=== PATIENT | female | born 1970 | race Caucasian/White ===

== ENCOUNTER 2018-01-09 15:24 | Observation (INO) | payer MEDICAID ==
[2018-01-09 15:35] VITALS: BMI 32.8
--- NOTE | 2018-01-09 15:59 | ED PDOC ---
Arrival/HPI - General Chief Complaint: Chest Pain Time Seen by Provider: 01/09/18 15:39 Historian: Patient - History of Present Illness Narrative History of Present Illness (Text): 01/09/18 15:55 47 year old female presents to the Emergency department complaining of right sided chest pain with radiation to left sided neck for 2 weeks. Patient states she has been evaluated at [facility] twice for this complaint and was discharged home. This morning, the pain worsened so she decided to seek Emergency department evaluation. Pain is worse with deep breaths and certain movements. Patient also complains of secondary shortness of breath. Patient reports she had never experienced these symptoms before two weeks ago. Patient denies any fever, chills, diaphoresis, rhinorrhea, nausea, vomiting, diarrhea, urinary symptoms, back pain, headache, dizziness, trauma, or any other complaints. Time/Duration: < month (2 weeks) Symptom Onset: Gradual Symptom Course: Unchanged Context: Home Past Medical History - Provider Review Nursing Documentation Reviewed: Yes - Infectious Disease Hx of Infectious Diseases: None - Cardiac Hx Cardiac Disorders: No - Pulmonary Hx Respiratory Disorders: Yes Hx Asthma: Yes - Neurological Hx Neurological Disorder: No - HEENT Hx HEENT Disorder: No - Renal Hx Renal Disorder: No - Endocrine/Metabolic Hx Endocrine Disorders: No - Hematological/Oncological Hx Blood Disorders: No Hx AIDS: No - Integumentary Hx Dermatological Disorder: No - Musculoskeletal/Rheumatological Hx Musculoskeletal Disorders: No - Gastrointestinal Hx Gastrointestinal Disorders: No - Genitourinary/Gynecological Hx Genitourinary Disorders: No - Psychiatric Hx Psychophysiologic Disorder: No Hx Substance Use: No - Surgical History Hx Section: Yes - Anesthesia Hx Anesthesia Reactions: No Hx Malignant Hyperthermia: No Family/Social History - Physician Review Nursing Documentation Reviewed: Yes Family/Social History: Unknown Family HX Smoking Status: Never Smoked Hx Alcohol Use: No Hx Substance Use: No Allergies/Home Meds Allergies/Adverse Reactions: Allergies Penicillins Allergy (Verified 01/10/16 18:00) ANAPHYLAXIS Review of Systems - Physician Review All systems were reviewed & negative as marked: Yes - Review of Systems Constitutional: absent: Fevers, Night Sweats ENT: absent: Rhinorrhea Respiratory: SOB Cardiovascular: Chest Pain Gastrointestinal: absent: Diarrhea, Nausea, Vomiting Genitourinary Female: absent: Dysuria, Frequency, Hematuria Musculoskeletal: Neck Pain. absent: Back Pain Neurological: absent: Headache, Dizziness Endocrine: absent: Diaphoresis Physical Exam Vital Signs Reviewed: Yes Vital Signs Temp Pulse Resp BP Pulse Ox 01/09/18 19:18 89 18 141/77 99 01/09/18 16:36 78 20 155/93 H 96 01/09/18 15:38 98.0 F 95 H 18 130/82 100 Temperature: Afebrile Blood Pressure: Normal Pulse: Tachycardic Respiratory Rate: Normal Appearance: Positive for: Well-Appearing, Non-Toxic, Comfortable Pain Distress: None Mental Status: Positive for: Alert and Oriented X 3, other (patient is crying) - Systems Exam Head: Present: Atraumatic, Normocephalic Pupils: Present: PERRL Extroacular Muscles: Present: EOMI Conjunctiva: Present: Normal Mouth: Present: Moist Mucous Membranes Neck: Present: Normal Range of Motion Respiratory/Chest: Present: Decreased Breath Sounds, Tender to Palpation ( tenderness to palpation over anterior chest wall) Cardiovascular: Present: Regular Rate and Rhythm, Normal S1, S2. No: Murmurs Abdomen: Present: Normal Bowel Sounds. No: Tenderness, Distention, Peritoneal Signs Back: Present: Normal Inspection Upper Extremity: Present: Normal Inspection. No: Cyanosis, Edema Lower Extremity: Present: Normal Inspection. No: Edema Neurological: Present: GCS=15, CN II-XII Intact, Speech Normal Skin: Present: Warm, Dry, Normal Color. No: Rashes Psychiatric: Present: Alert, Oriented x 3, Normal Insight, Normal Concentration Medical Decision Making ED Course and Treatment: 01/09/18 16:03 Impression: 47 year old female presents to the Emergency department complaining of right sided chest pain that radiates to the left neck. Plan: -- EKG -- Urinalysis, HCG qualitative urine -- Labs -- Aspirin, Toradol -- Reassess and disposition Progress Notes: 01/09/18 16:47 EKG shows normal sinus rhythm rate approximately [address] or T-wave changes. There are Q waves inferiorly with poor R-wave progression. No old available for comparison. 01/09/18 16:48 No improvement with nitroglycerin or Toradol. Pain is improved with morphine. - Lab Interpretations Lab Results: 01/09/18 16:10 01/09/18 16:10 Lab Results 01/09/18 16:10: Phosphorus 3.3 01/09/18 16:10: D-Dimer, Quantitative 209 01/09/18 16:10: Sodium 143, Potassium 3.9, Chloride 105, Carbon Dioxide 26, Anion Gap 16, BUN 13, Creatinine 0.6 L, Est GFR ( Amer) > 60, Est GFR ( Non-Af Amer) > 60, Random Glucose 99, Calcium 10.2, Magnesium 2.1, Total Bilirubin 0.5, AST 34, ALT 44, Alkaline Phosphatase 74, Lactate Dehydrogenase 568, Total Creatine Kinase 73, Troponin I < 0.01, Total Protein 7.4, Albumin 4.2 , Globulin 3.2, Albumin/Globulin Ratio 1.3 01/09/18 16:10: WBC 10.7, RBC 4.98, Hgb 14.8, Hct 43.9, MCV 88.2, MCH 29.7, MCHC 33.7, RDW 12.9, Plt Count 262, MPV 10.0, Gran % 64.7, Lymph % (Auto) 27.0, [place] % (Auto) 7.5 H, Eos % (Auto) 0.4 L, Baso % (Auto) 0.4, Gran # 6.95 H, Lymph # (Auto) 2.9, [place] # (Auto) 0.8 H, Eos # (Auto) 0.0, Baso # (Auto) 0.04 - Medication Orders Current Medication Orders: Aspirin (Aspirin Chewable) 81 mg PO DAILY [facility] Cyclobenzaprine HCl (Flexeril) 5 mg PO Q8H PRN PRN Reason: Pain, moderate (4-7) Heparin Sodium (Porcine) (Heparin) 5,000 units SC Q12 [facility] PRN Reason: Protocol Ibuprofen (Motrin Tab) 400 mg PO Q6H PRN PRN Reason: Pain, Mild (1-3) Pantoprazole Sodium (Protonix Ec Tab) 40 mg PO DAILY [facility] Discontinued Medications Aspirin (Aspirin) 325 mg PO STAT STA Stop: 01/09/18 15:48 Last Admin: 01/09/18 16:15 Dose: Ketorolac Tromethamine (Toradol) 15 mg IVP ONCE ONE Stop: 01/09/18 15:50 Last Admin: 01/09/18 16:15 Dose: 15 mg MAR Pain Assessment Document 01/09/18 16:15 SRE (Rec: 01/09/18 16:25 SRE [id number]) Pain Reassessment Is this a pain reassessment? Yes Sleep Is patient sleeping during reassessment? No IVP Administration Document 01/09/18 16:15 SRE (Rec: 01/09/18 16:25 SRE [id number]) Charges for Administration # of IVP Administrations 1 Morphine Sulfate (Morphine) 4 mg IVP STAT STA Stop: 01/09/18 16:31 Last Admin: 01/09/18 16:49 Dose: 4 mg MAR Pain Assessment Document 01/09/18 16:49 SRE (Rec: 01/09/18 16:50 SRE [id number]) Pain Reassessment Is this a pain reassessment? Yes Sleep Is patient sleeping during reassessment? No Presence of Pain Presence of Pain Yes Pain Scale Used Pain Scale Used Numeric Location Pain Location Body Site Chest Description Description Constant IVP Administration Document 01/09/18 16:49 SRE (Rec: 01/09/18 16:50 SRE [id number]) Charges for Administration # of IVP Administrations 1 Nitroglycerin (Nitrostat Sl Tab) 0.4 mg SL STAT STA Stop: 01/09/18 16:31 Last Admin: 01/09/18 16:30 Dose: 0.4 mg Ondansetron HCl (Zofran Inj) 4 mg IVP ONCE ONE Stop: 01/09/18 16:31 Last Admin: 01/09/18 16:46 Dose: 4 mg IVP Administration Document 01/09/18 16:46 SRE (Rec: 01/09/18 16:49 SRE [id number]) Charges for Administration # of IVP Administrations 1 Pantoprazole Sodium (Protonix Ec Tab) 40 mg PO ONCE ONE Stop: 01/09/18 18:21 Last Admin: 01/09/18 19:07 Dose: 40 mg - Scribe Statement The provider has reviewed the documentation as recorded by the Devon Vanegas Provider Scribe Attestation: All medical record entries made by the Sumitibиван were at my direction and personally dictated by me. I have reviewed the chart and agree that the record accurately reflects my personal performance of the history, physical exam, medical decision making, and the department course for this patient. I have also personally directed, reviewed, and agree with the discharge instructions and disposition. Disposition/Present on Arrival - Present on Arrival Any Indicators Present on Arrival: No History of DVT/PE: No History of Uncontrolled Diabetes: No Urinary Catheter: No History of Decub. Ulcer: No History Surgical Site Infection Following: None - Disposition Have Diagnosis and Disposition been Completed?: Yes Diagnosis: Chest pain Disposition: HOSPITALIZED Disposition Time: 17:02 Patient Plan: Observation, Telemetry Patient Problems: Current Active Problems Problem Status Onset Chest pain Acute Condition: GOOD
[2018-01-09 16:29] LABS: BASO # 0.04 K/mm3 (0.0-2.0); BASO % 0.4 % (0.0-3.0); EOS % 0.4 % (1.5-5.0); GRAN # 6.95 (1.4-6.5); GRAN % 64.7 % (50.0-68.0); HEMOGLOBIN 14.8 g/dL (12.0-16.0); LYMPH # 2.9 (1.2-3.4); MEAN CELL VOLUME 88.2 fl (80.0-105.0); MEAN CORPUSCULAR HEMOGLOBIN 29.7 pg (25.0-35.0); MEAN CORPUSCULAR HGB CONC 33.7 g/dl (31.0-37.0); MONO # 0.8 (0.1-0.6); MONO % 7.5 % (1.0-6.0); RBC 4.98 10^6/uL (3.5-6.1); RED CELL DISTRIBUTION WIDTH 12.9 % (11.5-14.5); WHITE BLOOD COUNT 10.7 10^3/ul (4.5-11.0)
[2018-01-09] MEDS ORDERED: Morphine 4 mg/ml ISec IVP STA (16:30)
[2018-01-09 16:32] LABS: ALB/GLOB RATIO 1.3 (1.1-1.8); ALBUMIN 4.2 g/dL (3.0-4.8); ALT/SGPT 44 U/L (7-56); AST/SGOT 34 U/L (14-36); BLOOD UREA NITROGEN 13 mg/dL (7-21); CALCIUM 10.2 mg/dL (8.4-10.5); GFR AFRICAN-AMERICAN > 60; GFR NON-AFRICAN AMERICAN > 60
[2018-01-09 16:44] LABS: TROPONIN I < 0.01 ng/mL
--- NOTE | 2018-01-09 17:14 | CP.PCM.HP ---
<Princess Juan - Last Filed: 01/09/18 18:23> History of Present Illness - History of Present Illness History of Present Illness: CC: chest pain HPI: 47F with no PMHx presents to ED with complaints of intermittent chest pain for 2 weeks. Patient reports pain began with no inciting event. She rates the pain 10/10 at its worst and describes it as a "knock." Patient's pain is located in her epigastric region and radiates to her left shoulder, back, neck, and down her left arm to her fingers. She reports movement and palpation of the areas make the pain worse and the medications she took in the ED (toradol and morphine) made the pain better. She also admitted to a headache which subsided upon receiving medications in the ED. Patient also reports an association with food stating that every time she eats she feels worsening epigastric pain. On complete ROS patient denied fever, chills, weight loss, SOB, cough, abd pain, nausea, vomiting, bowel/bladder complaints, swelling in her legs b/l. Patient admits to headache, dizziness, chest pain, palpitations, LLE pain. Of note patient was seen twice at [facility] for similar complaints and was discharged home. PMHx: None PSurgHx: cholecystectomy 10years ago; C-sections Meds: None ALL: PCN SocHx: denies EtOH, tobacco use, drug use in family. Lives at home with . Works as a cashier wrapper. Denies any recent travel/sick contacts. FamHx: hx of DM in the family [patient unable to specify who]; denied hx of CVA , [place], cancer in family PMD: None Present on Admission - Present on Admission Any Indicators Present on Admission: No Review of Systems - Review of Systems All systems: reviewed and no additional remarkable complaints except - Constitutional Constitutional: As Per HPI, Headache. absent: Chills, Fever, Weight Loss - EENT Eyes: As Per HPI. absent: Change in Vision Ears: As Per HPI, Dizziness Nose/Mouth/Throat: As Per HPI. absent: Sore Throat - Cardiovascular Cardiovascular: As Per HPI, Chest Pain, Pain Radiating to Arm/Neck/Jaw, Palpitations. absent: Dyspnea, Dyspnea on Exertion, Edema, Leg Edema, Syncope - Respiratory Respiratory: As Per HPI. absent: Cough, Dyspnea, Dyspnea on Exertion - Gastrointestinal Gastrointestinal: As Per HPI, Heartburn. absent: Abdominal Pain, Constipation, Diarrhea, Dysphagia, Nausea, Vomiting - Genitourinary Genitourinary: As Per HPI. absent: Dysuria, Hematuria, Pyuria - Musculoskeletal Musculoskeletal: As Per HPI, Back Pain, Myalgias, Neck Pain, Radiating Pain into Limb. absent: Numbness, Stiffness, Tingling - Integumentary Integumentary: As Per HPI. absent: Dry Skin, Rash - Neurological Neurological: As Per HPI, Dizziness, Headaches. absent: Numbness, Tingling - Psychiatric Psychiatric: As Per HPI. absent: Anxiety, Depression - Endocrine Endocrine: As Per HPI. absent: Polydipsia, Polyphagia, Polyuria - Hematologic/Lymphatic Hematologic: As Per HPI. absent: Easy Bleeding, Easy Bruising, Lymphadenopathy Past Patient History - Infectious Disease Hx of Infectious Diseases: None - Past Social History Smoking Status: Never Smoked - CARDIAC Hx Cardiac Disorders: No - PULMONARY Hx Respiratory Disorders: Yes Hx Asthma: Yes - NEUROLOGICAL Hx Neurological Disorder: No - HEENT Hx HEENT Problems: No - RENAL Hx Chronic Kidney Disease: No - ENDOCRINE/METABOLIC Hx Endocrine Disorders: No - HEMATOLOGICAL/ONCOLOGICAL Hx Blood Disorders: No Hx AIDS: No - INTEGUMENTARY Hx Dermatological Problems: No - MUSCULOSKELETAL/RHEUMATOLOGICAL Hx Musculoskeletal Disorders: No - GASTROINTESTINAL Hx Gastrointestinal Disorders: No - GENITOURINARY/GYNECOLOGICAL Hx Genitourinary Disorders: No - PSYCHIATRIC Hx Psychophysiologic Disorder: No Hx Substance Use: No - SURGICAL HISTORY Hx Section: Yes - ANESTHESIA Hx Anesthesia Reactions: No Hx Malignant Hyperthermia: No Meds Allergies/Adverse Reactions: Allergies Allergy/AdvReac Type Severity Reaction Status Date / Time Penicillins Allergy ANAPHYLAXIS Verified 01/10/16 18:00 Physical Exam - Constitutional Appears: Non-toxic, No Acute Distress - Head Exam Head Exam: ATRAUMATIC, NORMAL INSPECTION, NORMOCEPHALIC - Eye Exam Eye Exam: EOMI, Normal appearance, PERRL. absent: Conjunctival injection, Scleral icterus Pupil Exam: NORMAL ACCOMODATION - ENT Exam ENT Exam: Mucous Membranes Moist - Neck Exam Neck exam: Positive for: Normal Inspection. Negative for: Tenderness - Respiratory Exam Respiratory Exam: Clear to Auscultation Bilateral, NORMAL BREATHING PATTERN. absent: Accessory Muscle Use, Rales, Rhonchi, Wheezes, Respiratory Distress - Cardiovascular Exam Cardiovascular Exam: REGULAR RHYTHM, RRR, +S1, +S2. absent: Systolic Murmur - GI/Abdominal Exam GI & Abdominal Exam: Normal Bowel Sounds, Soft. absent: Firm, Guarding, Rigid, Tenderness - Rectal Exam Rectal Exam: Deferred - Extremities Exam Extremities exam: Positive for: normal capillary refill, normal inspection, pedal pulses present. Negative for: pedal edema - Back Exam Back exam: muscle spasm, NORMAL INSPECTION, paraspinal tenderness. absent: rash noted - Neurological Exam Neurological exam: Alert, CN II-XII Intact, Oriented x3 - Psychiatric Exam Psychiatric exam: Normal Affect, Normal Mood - Skin Skin Exam: Dry, Intact, Normal Color, Warm Results - Vital Signs Recent Vital Signs: Last Vital Signs Temp 98.0 F 01/09/18 15:38 Pulse 78 01/09/18 16:36 Resp 20 01/09/18 16:36 BP 155/93 H 01/09/18 16:36 Pulse Ox 96 01/09/18 16:36 - Labs Result Diagrams: 01/09/18 16:10 01/09/18 16:10 Labs: Laboratory Results - last 24 hr 01/09/18 01/09/18 01/09/18 16:10 16:10 16:10 WBC 10.7 RBC 4.98 Hgb 14.8 Hct 43.9 MCV 88.2 MCH 29.7 MCHC 33.7 RDW 12.9 Plt Count 262 MPV 10.0 Gran % 64.7 Lymph % (Auto) 27.0 Elbert % (Auto) 7.5 H Eos % (Auto) 0.4 L Baso % (Auto) 0.4 Gran # 6.95 H Lymph # (Auto) 2.9 [place]bert # (Auto) 0.8 H Eos # (Auto) 0.0 Baso # (Auto) 0.04 D-Dimer, Quantitative 209 Sodium 143 Potassium 3.9 Chloride 105 Carbon Dioxide 26 Anion Gap 16 BUN 13 Creatinine 0.6 L Est GFR ( Amer) > 60 Est GFR (Non-Af Amer) > 60 Random Glucose 99 Calcium 10.2 Magnesium 2.1 Total Bilirubin 0.5 AST 34 ALT 44 Alkaline Phosphatase 74 Lactate Dehydrogenase 568 Total Creatine Kinase 73 Troponin I < 0.01 Total Protein 7.4 Albumin 4.2 Globulin 3.2 Albumin/Globulin Ratio 1.3 Assessment & Plan - Assessment and Plan (Free Text) Assessment: 47F with no PMHx presents to ED with complaints of intermittent chest pain for 2 weeks Plan: Chest pain r/o ACS - Tele/Obs admission - Troponin neg x 1 f/u trop x 2 - EKG no acute findings noted - ASA 81mg qd - f/u Echo - f/u AM labs including CBC, CMP, Lipid panel, Thyroid studies, HgbA1c - Heart Healthy Diet - Cardio consult: Dr. Graciela KRUSE pain - low suspicion for DVT - f/u dopplers to r/o DVT Neck/Back pain - likely muscle spasms secondary to patient's work as a cashier wrapper - Flexeril 5mg po q8h prn pain mod - Motrin 400mg po q6h prn pain mild GI ppx: Protonix 40mg po qd DVT ppx: Heparin 5000u sc q12, SCDs Diet: HHD Discussed with Dr. Johnnie Juan PGY2 <Omi Blair - Last Filed: 01/10/18 12:12> Results - Vital Signs Recent Vital Signs: Last Vital Signs Temp 98 F 01/10/18 11:51 Pulse 72 01/10/18 11:51 Resp 20 01/10/18 11:51 BP 106/66 01/10/18 11:51 Pulse Ox 97 01/10/18 06:00 - Labs Result Diagrams: 01/10/18 04:15 01/10/18 04:15 Labs: Laboratory Results - last 24 hr 01/09/18 01/09/18 01/09/18 17:50 17:50 21:55 WBC RBC Hgb Hct MCV MCH MCHC RDW Plt Count MPV Gran % Lymph % (Auto) Elbert % (Auto) Eos % (Auto) Baso % (Auto) Gran # Lymph # (Auto) [place]bert # (Auto) Eos # (Auto) Baso # (Auto) APTT Sodium Potassium Chloride Carbon Dioxide Anion Gap BUN Creatinine Est GFR ( Amer) Est GFR (Non-Af Amer) Random Glucose Calcium Total Bilirubin AST ALT Alkaline Phosphatase Troponin I < 0.01 Total Protein Albumin Globulin Albumin/Globulin Ratio Triglycerides Cholesterol LDL Cholesterol Direct HDL Cholesterol Free T4 TSH 3rd Generation Urine Color Straw Urine Appearance Clear Urine pH 7.0 Ur Specific [place] 1.010 Urine Protein Negative Urine Glucose (UA) Negative Urine Ketones Negative Urine Blood Negative Urine Nitrate Negative Urine Bilirubin Negative Urine Urobilinogen 0.2 Ur Leukocyte Esterase Negative Urine HCG, Qual Negative 01/10/18 01/10/18 01/10/18 04:15 04:15 04:15 WBC 9.1 RBC 4.83 Hgb 14.3 Hct 43.2 MCV 89.4 MCH 29.6 MCHC 33.1 RDW 13.0 Plt Count 246 MPV 9.7 Gran % 64.9 Lymph % (Auto) 27.0 [place] % (Auto) 7.0 H Eos % (Auto) 0.7 L Baso % (Auto) 0.4 Gran # 5.91 Lymph # (Auto) 2.5 Elbert # (Auto) 0.6 Eos # (Auto) 0.1 Baso # (Auto) 0.04 APTT Sodium 142 Potassium 3.8 Chloride 105 Carbon Dioxide 31 Anion Gap 11 BUN 15 Creatinine 0.7 Est GFR ( Amer) > 60 Est GFR (Non-Af Amer) > 60 Random Glucose 114 H Calcium 10.2 Total Bilirubin 0.5 AST 36 ALT 49 Alkaline Phosphatase 75 Troponin I < 0.01 Total Protein 7.0 Albumin 3.8 Globulin 3.2 Albumin/Globulin Ratio 1.2 Triglycerides 147 Cholesterol 178 LDL Cholesterol Direct 114 HDL Cholesterol 40 Free T4 0.88 TSH 3rd Generation 1.68 Urine Color Urine Appearance Urine pH Ur Specific [place] Urine Protein Urine Glucose (UA) Urine Ketones Urine Blood Urine Nitrate Urine Bilirubin Urine Urobilinogen Ur Leukocyte Esterase Urine HCG, Qual 01/10/18 04:15 WBC RBC Hgb Hct MCV MCH MCHC RDW Plt Count MPV Gran % Lymph % (Auto) [place]bert % (Auto) Eos % (Auto) Baso % (Auto) Gran # Lymph # (Auto) [place] # (Auto) Eos # (Auto) Baso # (Auto) APTT 30.7 Sodium Potassium Chloride Carbon Dioxide Anion Gap BUN Creatinine Est GFR ( Amer) Est GFR (Non-Af Amer) Random Glucose Calcium Total Bilirubin AST ALT Alkaline Phosphatase Troponin I Total Protein Albumin Globulin Albumin/Globulin Ratio Triglycerides Cholesterol LDL Cholesterol Direct HDL Cholesterol Free T4 TSH 3rd Generation Urine Color Urine Appearance Urine pH Ur Specific [place] Urine Protein Urine Glucose (UA) Urine Ketones Urine Blood Urine Nitrate Urine Bilirubin Urine Urobilinogen Ur Leukocyte Esterase Urine HCG, Qual Attending/Attestation - Attestation I have personally seen and examined this patient.: Yes I have fully participated in the care of the patient.: Yes I have reviewed all pertinent clinical information: Yes Notes (Text): 01/10/18 12:10 attending note; Patient seen and examined with resident in ER. Patient is a 47-year-old female with no significant past medical history is admitted with left sided chest pain. Patient also complaining of left scapular area pain. Currently denies any headache or neck pain. EKG nonspecific changes. Cardiac enzyme 1 negative. admit the patient to telemetry. Cardiac enzymes 3 ordered. Cardiology evaluation requested. Most likely musculoskeletal pain. Vitals stable. Upon discharge the patient will follow-up with PMD of choice.
[2018-01-09 18:01] LABS: URINE BILIRUBIN NEGATIVE (NEGATIVE); URINE BLOOD NEGATIVE (NEGATIVE); URINE GLUCOSE (UA) NEGATIVE (NEGATIVE); URINE LEUKOCYTE ESTERASE NEGATIVE Leu/uL (NEGATIVE); URINE PROTEIN NEGATIVE mg/dL (<30 mg/dL); URINE UROBILINOGEN 0.2 E.U./dL (<1 E.U./dL)
[2018-01-09 18:02] LABS: URINE APPEARANCE CLEAR (CLEAR); URINE COLOR STRAW (YELLOW)
[2018-01-09] MEDS ORDERED: Pantoprazole 40 mg EC Tab PO ONE (18:20)
--- NOTE | 2018-01-09 21:10 | US ---
HISTORY: Leg pain and swelling. Evaluate for DVT PHYSICIAN(S): Ryan Gonsales MD. TECHNIQUE: Duplex sonography and color-flow Doppler with graded compression were used to evaluate the deep venous systems of both lower extremities. FINDINGS: The visualized deep venous systems of both lower extremities are sonographically normal and compressible. Normal wave forms and augmentation are seen. There is no sonographic evidence for deep venous thrombosis in the visualized segments of both lower extremities. IMPRESSION: No sonographic evidence for deep venous thrombosis in the visualized segments of both lower extremities.
[2018-01-10 04:40] LABS: BASO # 0.04 K/mm3 (0.0-2.0); BASO % 0.4 % (0.0-3.0); EOS # 0.1 (0.0-0.7); EOS % 0.7 % (1.5-5.0); GRAN # 5.91 (1.4-6.5); GRAN % 64.9 % (50.0-68.0); HEMOGLOBIN 14.3 g/dL (12.0-16.0); LYMPH # 2.5 (1.2-3.4); MEAN CELL VOLUME 89.4 fl (80.0-105.0); MEAN CORPUSCULAR HEMOGLOBIN 29.6 pg (25.0-35.0); MEAN CORPUSCULAR HGB CONC 33.1 g/dl (31.0-37.0); MEAN PLATELET VOLUME 9.7 fl (7.0-11.0); MONO # 0.6 (0.1-0.6); RBC 4.83 10^6/uL (3.5-6.1); WHITE BLOOD COUNT 9.1 10^3/ul (4.5-11.0)
[2018-01-10 04:47] LABS: ALB/GLOB RATIO 1.2 (1.1-1.8); ALBUMIN 3.8 g/dL (3.0-4.8); ALT/SGPT 49 U/L (7-56); AST/SGOT 36 U/L (14-36); BLOOD UREA NITROGEN 15 mg/dL (7-21); CALCIUM 10.2 mg/dL (8.4-10.5); GFR AFRICAN-AMERICAN > 60; GFR NON-AFRICAN AMERICAN > 60; HDL CHOLESTEROL 40 mg/dL (29-60)
[2018-01-10 04:58] LABS: LDL CHOLESTEROL 114 mg/dL (0-129)
[2018-01-10 04:59] LABS: TROPONIN I < 0.01 ng/mL
[2018-01-10 05:03] LABS: FREE T4 0.88 ng/dL (0.78-2.19)
[2018-01-10 06:10] VITALS: O2SAT 97
[2018-01-10] MEDS ORDERED: Alum-Mag Hydrox-Simethicone Susp (30 mL) PO ONE (08:46)
[2018-01-10] MEDS ORDERED: Pantoprazole 40 mg EC Tab PO SCH (10:00)
--- NOTE | 2018-01-10 10:57 | CARD ---
APPROVED REPORT EKG Measurement Heart [id number] MA [id number] <Conclusion> Normal sinus rhythm Possible inferior infarct, age undetermined Low voltage lateral leads
--- NOTE | 2018-01-10 11:44 | CARD ---
APPROVED REPORT EKG Measurement Heart [id number] [place] [id number] <Conclusion> Normal sinus rhythm Q in Lead 3, AVF can represent Old. Inf.Wall OR.
[2018-01-10] MEDS ORDERED: Alum-Mag Hydrox-Simethicone Susp (30 mL) PO PRN (12:09)
--- NOTE | 2018-01-10 12:11 | CT ---
PROCEDURE: CT HEAD WITHOUT CONTRAST. HISTORY: Headache with eye droop COMPARISON: None available. TECHNIQUE: Axial computed tomography images were obtained through the head/brain without intravenous contrast. Radiation dose: Total exam DLP = 944 mGy-cm. This CT exam was performed using one or more of the following dose reduction techniques: Automated exposure control, adjustment of the mA and/or kV according to patient size, and/or use of iterative reconstruction technique. FINDINGS: HEMORRHAGE: No intracranial hemorrhage. BRAIN: No mass effect or edema. No atrophy or chronic microvascular ischemic changes. VENTRICLES: Unremarkable. No hydrocephalus. CALVARIUM: Unremarkable. PARANASAL SINUSES: Unremarkable as visualized. No significant inflammatory changes. MASTOID AIR CELLS: Unremarkable as visualized. No inflammatory changes. OTHER FINDINGS: None. IMPRESSION: No acute findings
--- NOTE | 2018-01-10 12:19 | CT ---
PROCEDURE: CT Cervical Spine without contrast HISTORY: Neck pain COMPARISON: None available. TECHNIQUE: Axial computed tomography images were obtained of the cervical spine without the use of intravenous contrast. Coronal and sagittal reformatted images were created and reviewed. Radiation dose: Total exam DLP = 559 mGy-cm. This CT exam was performed using one or more of the following dose reduction techniques: Automated exposure control, adjustment of the mA and/or kV according to patient size, and/or use of iterative reconstruction technique. FINDINGS: VERTEBRAE: No fracture. Normal alignment. No destructive bony lesion. DISCS/SPINAL CANAL/NEURAL FORAMINA: No significant central canal or neural foraminal stenosis. Discs heights are grossly preserved. PARASPINAL SOFT TISSUES: Unremarkable. OTHER FINDINGS: None. IMPRESSION: Unremarkable CT of the cervical spine.
--- NOTE | 2018-01-10 13:27 | CP.PCM.DIS ---
<BrandtFernando - Last Filed: 01/11/18 06:49> Provider - Provider Date of Admission: 01/09/18 17:00 Attending physician: Omi Blair MD Consults: Cardio: Dr. Trinidad Time Spent in preparation of Discharge (in minutes): 45 Hospital Course - Lab Results Lab Results: Most Recent Lab Values WBC 9.1 10^3/ul (4.5-11.0) 01/10/18 04:15 RBC 4.83 10^6/uL (3.5-6.1) 01/10/18 04:15 Hgb 14.3 g/dL (12.0-16.0) 01/10/18 04:15 Hct 43.2 % (36.0-48.0) 01/10/18 04:15 MCV 89.4 fl (80.0-105.0) 01/10/18 04:15 MCH 29.6 pg (25.0-35.0) 01/10/18 04:15 MCHC 33.1 g/dl (31.0-37.0) 01/10/18 04:15 RDW 13.0 % (11.5-14.5) 01/10/18 04:15 Plt Count 246 10^3/uL (120.0-450.0) 01/10/18 04:15 MPV 9.7 fl (7.0-11.0) 01/10/18 04:15 Gran % 64.9 % (50.0-68.0) 01/10/18 04:15 Lymph % (Auto) 27.0 % (22.0-35.0) 01/10/18 04:15 Saunders % (Auto) 7.0 % (1.0-6.0) H 01/10/18 04:15 Eos % (Auto) 0.7 % (1.5-5.0) L 01/10/18 04:15 Baso % (Auto) 0.4 % (0.0-3.0) 01/10/18 04:15 Gran # 5.91 (1.4-6.5) 01/10/18 04:15 Lymph # (Auto) 2.5 (1.2-3.4) 01/10/18 04:15 Saunders # (Auto) 0.6 (0.1-0.6) 01/10/18 04:15 Eos # (Auto) 0.1 (0.0-0.7) 01/10/18 04:15 Baso # (Auto) 0.04 K/mm3 (0.0-2.0) 01/10/18 04:15 APTT 30.7 Seconds (25.1-36.5) 01/10/18 04:15 D-Dimer, Quantitative 209 ng/mL (0-243) 01/09/18 16:10 Sodium 142 mmol/L (132-148) 01/10/18 04:15 Potassium 3.8 mmol/L (3.6-5.0) 01/10/18 04:15 Chloride 105 mmol/L (98-107) 01/10/18 04:15 Carbon Dioxide 31 mmol/L (21-33) 01/10/18 04:15 Anion Gap 11 (10-20) 01/10/18 04:15 BUN 15 mg/dL (7-21) 01/10/18 04:15 Creatinine 0.7 mg/dl (0.7-1.2) 01/10/18 04:15 Est GFR ( Amer) > 60 01/10/18 04:15 Est GFR (Non-Af Amer) > 60 01/10/18 04:15 Random Glucose 114 mg/dL (70-110) H 01/10/18 04:15 Hemoglobin A1c 6.4 % (4.2-6.5) 01/10/18 04:15 Calcium 10.2 mg/dL (8.4-10.5) 01/10/18 04:15 Phosphorus 3.3 mg/dL (2.5-4.5) 01/09/18 16:10 Magnesium 2.1 mg/dL (1.7-2.2) 01/09/18 16:10 Total Bilirubin 0.5 mg/dL (0.2-1.3) 01/10/18 04:15 AST 36 U/L (14-36) 01/10/18 04:15 ALT 49 U/L (7-56) 01/10/18 04:15 Alkaline Phosphatase 75 U/L (38-126) 01/10/18 04:15 Lactate Dehydrogenase 568 U/L (333-699) 01/09/18 16:10 Total Creatine Kinase 73 U/L (35-230) 01/09/18 16:10 Troponin I < 0.01 ng/mL 01/10/18 04:15 Total Protein 7.0 g/dL (5.8-8.3) 01/10/18 04:15 Albumin 3.8 g/dL (3.0-4.8) 01/10/18 04:15 Globulin 3.2 gm/dL 01/10/18 04:15 Albumin/Globulin Ratio 1.2 (1.1-1.8) 01/10/18 04:15 Triglycerides 147 mg/dL (35-160) 01/10/18 04:15 Cholesterol 178 mg/dL (130-200) 01/10/18 04:15 LDL Cholesterol Direct 114 mg/dL (0-129) 01/10/18 04:15 HDL Cholesterol 40 mg/dL (29-60) 01/10/18 04:15 Free T4 0.88 ng/dL (0.78-2.19) 01/10/18 04:15 TSH 3rd Generation 1.68 mIU/mL (0.46-4.68) 01/10/18 04:15 Urine Color Straw (YELLOW) 01/09/18 17:50 Urine Appearance Clear (CLEAR) 01/09/18 17:50 Urine pH 7.0 (4.7-8.0) 01/09/18 17:50 Ur Specific [place] 1.010 (1.005-1.035) 01/09/18 17:50 Urine Protein Negative mg/dL (<30 mg/dL) 01/09/18 17:50 Urine Glucose (UA) Negative mg/dL (NEGATIVE) 01/09/18 17:50 Urine Ketones Negative mg/dL (NEGATIVE) 01/09/18 17:50 Urine Blood Negative (NEGATIVE) 01/09/18 17:50 Urine Nitrate Negative (NEGATIVE) 01/09/18 17:50 Urine Bilirubin Negative (NEGATIVE) 01/09/18 17:50 Urine Urobilinogen 0.2 E.U./dL (<1 E.U./dL) 01/09/18 17:50 Ur Leukocyte Esterase Negative Jaylen/uL (NEGATIVE) 01/09/18 17:50 Urine HCG, Qual Negative (NEGATIVE) 03/18/18 17:50 - Hospital Course Hospital Course: HPI: 47F with no PMHx presents to ED with complaints of intermittent chest pain for 2 weeks. Patient reports pain began with no inciting event. She rates the pain 10/10 at its worst and describes it as a "knock." Patient's pain is located in her epigastric region and radiates to her left shoulder, back, neck, and down her left arm to her fingers. She reports movement and palpation of the areas make the pain worse and the medications she took in the ED (toradol and morphine ) made the pain better. She also admitted to a headache which subsided upon receiving medications in the ED. Patient also reports an association with food stating that every time she eats she feels worsening epigastric pain. On complete ROS patient denied fever, chills, weight loss, SOB, cough, abd pain, nausea, vomiting, bowel/bladder complaints, swelling in her legs b/l. Patient admits to headache, dizziness, chest pain, palpitations, LLE pain. Of note patient was seen twice at [facility] for similar complaints and was discharged home. During course of admission, I asked patient if she has ever seen a [facility] educational [facility] , gotten an ECHO, undergone stress testing or cardiac catheteriztion, and she denied. She did complain of Left sided pain down her whole body sparing the abdomen. CT Head and CT C-Spine were obtained and were shown to be negative. ACS was ruled out with no ST elevations or troponins being positive. Dr. Trinidad saw patient and read ECHO, recommended CTA PE rule out, which was negative Patient states that her Dr., Dr. Julian and she has yet to establish care with a new PMD. Patient was advised to find a new PMD. Patient was deemed stable for discharge Discharge Exam - Head Exam Head Exam: ATRAUMATIC, NORMAL INSPECTION, NORMOCEPHALIC - Eye Exam Eye Exam: EOMI, Normal appearance, PERRL Pupil Exam: NORMAL ACCOMODATION, PERRL - Neck Exam Neck exam: Full Rom, Normal Inspection - Respiratory Exam Respiratory Exam: Clear to PA & Lateral, NORMAL BREATHING PATTERN, UNREMARKABLE - Cardiovascular Exam Cardiovascular Exam: REGULAR RHYTHM, RRR. absent: Diastolic murmur, Systolic Murmur - GI/Abdominal Exam GI & Abdominal Exam: Normal Bowel Sounds - Neurological Exam Neurological exam: Alert, CN II-XII Intact, Normal Gait, Oriented x3, Reflexes Normal - Psychiatric Exam Psychiatric exam: Normal Affect, Normal Mood - Skin Skin Exam: Dry, Intact, Normal Color, Warm Discharge Plan - Discharge Medications Prescriptions: Aluminum Hydroxide/Magnesium [Maalox Plus 30 ml] 30 ml PO Q8 PRN #100 ml PRN Reason: Indigestion Cyclobenzaprine [Cyclobenzaprine HCl] 10 mg PO DAILY PRN #5 tab PRN Reason: Pain, Severe (8-10) Pantoprazole [Protonix EC Tab] 40 mg PO DAILY #30 ect - Follow Up Plan Condition: GOOD Disposition: HOME/ ROUTINE Instructions: Chest Pain That Is Not Caused by the Heart (DC), Upper Back Pain , Back Pain (GEN) Additional Instructions: 1. Please follow up with the [facility] clinic. 2. If your symptoms return or worsen please return to the ED immediately. 3. Please take your new prescriptions as ordered and needed. <Omi Blair - Last Filed: 01/11/18 07:33> Provider - Provider Date of Admission: 01/09/18 17:00 Attending physician: Omi Blair MD Diagnosis - Discharge Diagnosis (1) Chest pain Status: Acute Hospital Course - Lab Results Lab Results: Most Recent Lab Values WBC 9.1 10^3/ul (4.5-11.0) 01/10/18 04:15 RBC 4.83 10^6/uL (3.5-6.1) 01/10/18 04:15 Hgb 14.3 g/dL (12.0-16.0) 01/10/18 04:15 Hct 43.2 % (36.0-48.0) 01/10/18 04:15 MCV 89.4 fl (80.0-105.0) 01/10/18 04:15 MCH 29.6 pg (25.0-35.0) 01/10/18 04:15 MCHC 33.1 g/dl (31.0-37.0) 01/10/18 04:15 RDW 13.0 % (11.5-14.5) 01/10/18 04:15 Plt Count 246 10^3/uL (120.0-450.0) 01/10/18 04:15 MPV 9.7 fl (7.0-11.0) 01/10/18 04:15 Gran % 64.9 % (50.0-68.0) 01/10/18 04:15 Lymph % (Auto) 27.0 % (22.0-35.0) 01/10/18 04:15 Saunders % (Auto) 7.0 % (1.0-6.0) H 01/10/18 04:15 Eos % (Auto) 0.7 % (1.5-5.0) L 01/10/18 04:15 Baso % (Auto) 0.4 % (0.0-3.0) 01/10/18 04:15 Gran # 5.91 (1.4-6.5) 01/10/18 04:15 Lymph # (Auto) 2.5 (1.2-3.4) 01/10/18 04:15 Saunders # (Auto) 0.6 (0.1-0.6) 01/10/18 04:15 Eos # (Auto) 0.1 (0.0-0.7) 01/10/18 04:15 Baso # (Auto) 0.04 K/mm3 (0.0-2.0) 01/10/18 04:15 APTT 30.7 Seconds (25.1-36.5) 01/10/18 04:15 D-Dimer, Quantitative 209 ng/mL (0-243) 01/09/18 16:10 Sodium 142 mmol/L (132-148) 01/10/18 04:15 Potassium 3.8 mmol/L (3.6-5.0) 01/10/18 04:15 Chloride 105 mmol/L (98-107) 01/10/18 04:15 Carbon Dioxide 31 mmol/L (21-33) 01/10/18 04:15 Anion Gap 11 (10-20) 01/10/18 04:15 BUN 15 mg/dL (7-21) 01/10/18 04:15 Creatinine 0.7 mg/dl (0.7-1.2) 01/10/18 04:15 Est GFR ( Amer) > 60 01/10/18 04:15 Est GFR (Non-Af Amer) > 60 01/10/18 04:15 Random Glucose 114 mg/dL (70-110) H 01/10/18 04:15 Hemoglobin A1c 6.4 % (4.2-6.5) 01/10/18 04:15 Calcium 10.2 mg/dL (8.4-10.5) 01/10/18 04:15 Phosphorus 3.3 mg/dL (2.5-4.5) 01/09/18 16:10 Magnesium 2.1 mg/dL (1.7-2.2) 01/09/18 16:10 Total Bilirubin 0.5 mg/dL (0.2-1.3) 01/10/18 04:15 AST 36 U/L (14-36) 01/10/18 04:15 ALT 49 U/L (7-56) 01/10/18 04:15 Alkaline Phosphatase 75 U/L (38-126) 01/10/18 04:15 Lactate Dehydrogenase 568 U/L (333-699) 01/09/18 16:10 Total Creatine Kinase 73 U/L (35-230) 01/09/18 16:10 Troponin I < 0.01 ng/mL 01/10/18 04:15 Total Protein 7.0 g/dL (5.8-8.3) 01/10/18 04:15 Albumin 3.8 g/dL (3.0-4.8) 01/10/18 04:15 Globulin 3.2 gm/dL 01/10/18 04:15 Albumin/Globulin Ratio 1.2 (1.1-1.8) 01/10/18 04:15 Triglycerides 147 mg/dL (35-160) 01/10/18 04:15 Cholesterol 178 mg/dL (130-200) 01/10/18 04:15 LDL Cholesterol Direct 114 mg/dL (0-129) 01/10/18 04:15 HDL Cholesterol 40 mg/dL (29-60) 01/10/18 04:15 Free T4 0.88 ng/dL (0.78-2.19) 01/10/18 04:15 TSH 3rd Generation 1.68 mIU/mL (0.46-4.68) 01/10/18 04:15 Urine Color Straw (YELLOW) 01/09/18 17:50 Urine Appearance Clear (CLEAR) 01/09/18 17:50 Urine pH 7.0 (4.7-8.0) 03/18/18 17:50 Ur Specific [place] 1.010 (1.005-1.035) 01/09/18 17:50 Urine Protein Negative mg/dL (<30 mg/dL) 01/09/18 17:50 Urine Glucose (UA) Negative mg/dL (NEGATIVE) 01/09/18 17:50 Urine Ketones Negative mg/dL (NEGATIVE) 01/09/18 17:50 Urine Blood Negative (NEGATIVE) 01/09/18 17:50 Urine Nitrate Negative (NEGATIVE) 01/09/18 17:50 Urine Bilirubin Negative (NEGATIVE) 01/09/18 17:50 Urine Urobilinogen 0.2 E.U./dL (<1 E.U./dL) 01/09/18 17:50 Ur Leukocyte Esterase Negative Jaylen/uL (NEGATIVE) 01/09/18 17:50 Urine HCG, Qual Negative (NEGATIVE) 01/09/18 17:50 Attending/Attestation - Attestation I have personally seen and examined this patient.: Yes I have fully participated in the care of the patient.: Yes I have reviewed all pertinent clinical information, including history, physical exam and plan: Yes Notes (Text): 01/11/18 07:25 attending note; Patient seen and examined with resident. Patient is a 47-year-old female with no significant past medical history is admitted with left sided chest pain. Patient also complaining of left scapular area pain. EKG nonspecific changes. Cardiac enzyme 3 negative. Patient had brief episode of headache. CT head is negative. CT cervical spine is negative. Able to move the arm. No tingling or numbness noted now. Cardiology evaluation appreciated. Echo preliminary normal. CT angiogram normal. Most likely musculoskeletal pain. Discharge home today. Upon discharge the patient will follow-up with PMD of choice.
[2018-01-10] MEDS ORDERED: Iohexol 350 MG/100 ML VIAL ONE ×2 (14:04→15:33)
--- NOTE | 2018-01-10 15:55 | CT ---
PROCEDURE: CT Chest with contrast (Pulmonary Angiogram) HISTORY: RV elevated pressure COMPARISON: None available. TECHNIQUE: Axial computed tomography images were obtained of the chest in the pulmonary arterial phase of enhancement. Coronal and sagittal reformatted images were created and reviewed. Intravenous contrast dose: 100 cc of Omni 350 Radiation dose: Total exam DLP = 394 mGy-cm. This CT exam was performed using one or more of the following dose reduction techniques: Automated exposure control, adjustment of the mA and/or kV according to patient size, and/or use of iterative reconstruction technique. FINDINGS: PULMONARY ARTERIES: Unremarkable. No pulmonary embolism. AORTA: No acute findings. No thoracic aortic aneurysm. LUNGS: Unremarkable. No nodule, mass or pulmonary consolidation. PLEURAL SPACES: Unremarkable. No effusion or pneuomothorax. HEART: Unremarkable. No cardiomegaly. No significant pericardial effusion. LYMPH NODES: No lymphadenopathy. BONES, CHEST WALL: Unremarkable. No fracture or destructive lesion OTHER FINDINGS: Fatty infiltration of the liver IMPRESSION: Unremarkable CT pulmonary angiogram. No pulmonary embolus.
[2018-01-10 16:21] VITALS: PULSE 79
[2018-01-10 18:05] VITALS: BP 121/88; RESP 19; TEMP 98.2
--- NOTE | 2018-01-10 18:06 | CARD ---
APPROVED REPORT EXAM: Two-dimensional and M-mode echocardiogram with Doppler and color Doppler. INDICATION LV Function:SystolicDiastolic 2D DIMENSIONS Left Atrium (2D)2.7 (1.6-4.0cm)IVSd1.0 (0.7-1.1cm) LVDd3.5 (3.9-5.9cm)PWd1.2 (0.7-1.1cm) LVDs2.5 (2.5-4.0cm)FS (%) 28.2 % LVEF (%)55.5 (>50%) M-Mode DIMENSIONS Aortic Root2.30 (2.2-3.7cm)Aortic Cusp Exc.1.60 (1.5-2.0cm) Aortic Valve AoV Peak Mrnyhlce443.0cm/Abdirashid Peak GR.6mmHg Mitral Valve MV E Ddwjowjj00.2cm/sMV A Kcovypun86.3cm/sE/A ratio1.2 TDI E/Lateral E'0.0E/Medial E'0.0 Tricuspid Valve TR Peak [id number]/sRAP [id number] Peak Gr.10mmHg [id number] LEFT VENTRICLE The left ventricle is normal size. There is normal left ventricular wall thickness. The left ventricular function is normal.EF-55-60% There is normal LV segmental wall motion. The left ventricular diastolic function is normal. No left ventricle thrombus noted on this study. There is no ventricular septal defect visualized. There is no left ventricular aneurysm. There is no mass noted in the left ventricle. RIGHT VENTRICLE The right ventricle is normal size. There is normal right ventricular wall thickness. The right ventricular systolic function is normal. AORTIC VALVE The aortic valve is normal in structure. No aortic regurgitation is present. There is no aortic valvular stenosis. There is no aortic valvular vegetation. MITRAL VALVE The mitral valve is thickened but opens well. Mitral regurgitation is trace. There is no mitral valve stenosis. There is no evidence of mitral valve prolapse. TRICUSPID VALVE The tricuspid valve leaflets are thickened , but open well. There is trace to mild tricuspid regurgitation.RVSP-20 mm of Hg. There is no tricuspid valve stenosis. There is no tricuspid valve prolapse or vegetation. PULMONIC VALVE The pulmonary valve is normal in structure. There is no pulmonic valvular regurgitation. There is no pulmonic valvular stenosis. GREAT VESSELS The aortic root is normal in size. The ascending aorta is normal in size. The pulmonary artery is normal. The IVC is normal in size and collapses >50% with inspiration. PERICARDIAL EFFUSION There is no pleural effusion. There is no pericardial effusion. <Conclusion> Normal chamber size. Ef-55-60% Mitral regurgitation is trace. There is trace to mild tricuspid regurgitation.RVSP-20 mm of Hg. The IVC is normal in size and collapses >50% with inspiration. There is no pericardial effusion. No vegetation or thrombus noted.
--- NOTE | 2018-01-10 18:40 | CON ---
DATE: CARDIOLOGY CONSULTATION REASON FOR CONSULTATION: Chest pain. HISTORY OF PRESENT ILLNESS: The patient is a 47-year-old female who was admitted because of chest pain that was described as a knock. The patient is also experiencing right eye pain and right frontal headache. The patient denies any prior cardiac history and at this time she is chest pain free. SOCIAL HISTORY: Nonsmoker, nondrinker. MEDICATIONS: Aspirin 81 mg once a day, Flexeril 5 mg q. 8 hours, heparin 5000 units q. 12 hours, ibuprofen 400 mg q. 6 hours p.r.n., Protonix 40 mg p.o. once a day. REVIEW OF SYSTEMS: No fever or chills. No productive cough. No dizziness or syncope. PHYSICAL EXAMINATION GENERAL: The patient is a middle-aged female who does not appear to be in any distress. VITAL SIGNS: Blood pressure 106/66, heart rate 72, temperature 98, respirations 20. HEENT: Normocephalic. NECK: No JVD. CHEST: Clear. HEART: S1 and S2 regular. ABDOMEN: Soft. EXTREMITIES: No edema. LABORATORY DATA: SMA-7 is within normal limit except for glucose of 114 today. Three sets of troponins are negative. Lipid profile is within normal limit. TSH level and T4 level are within normal limit. Hemoglobin, hematocrit, white count and platelet count are within normal limit. D-dimer is within normal limit. EKG reveals sinus rhythm, possible anterior infarct, age indeterminate. Repeat EKG today revealed the same picture. Head CT scan without contrast unremarkable. Cervical spine CAT scan unremarkable. Venous of lower extremity, no DVT. ASSESSMENT: 1. Chest pain. Myocardial infarction ruled out. 2. Headache and right eye pain. Rule out acute glaucoma. RECOMMENDATIONS: Continue current aspirin 81 mg once a day, subcutaneous heparin 5000 units q. 12 hours. I will review the echocardiography study performed today. Case was discussed with the healthcare or medical. Mariano Zamora MD
== END 2018-01-10 18:51 | disposition home or self-care (01) ==
LOC: ED 15:24 → ERH 17:00 → 2RNO 23:15
PROVIDERS: ADMIT Internal Medicine; ATTEND Internal Medicine
DX: R07.89 Other chest pain (principal); R51 Headache; H57.11 Ocular pain, right eye
CPT/HCPCS: 36415; 70450; 71275; 72125; 80053; 80061; 81003; 82550; 83036; 83615; 83735; 84100; 84439; 84443; 84484; 84703; 85025; 85378; 85730; 93005; 93306; 93970; 96372; 96374; 96375; 99284; G0378; J1644; J1885; J2270; J2405; Q9967